=== PATIENT | female | born 1965 | race Caucasian/White ===

== ENCOUNTER 2022-03-11 02:31 | Outpatient (CLI) | payer BC, SELFPAY ==
[2022-03-11 12:08] LABS: Source Nasal/Nares
[2022-03-11 18:31] LABS: COVID-19 PCR Negative (Negative)
== END 2022-03-11 02:32 | disposition home or self-care (01) ==
LOC: LBO 02:31
PROVIDERS: PCP Internal Medicine; Visit Provider Podiatrist
DX: Z20.822 Contact with and (suspected) exposure to COVID-19 (principal); Z01.818 Encounter for other preprocedural examination
CPT/HCPCS: 87635

== ENCOUNTER 2022-03-13 06:17 | Day surgery (SDC) | payer BC, SELFPAY ==
--- NOTE | 2022-03-12 17:07 | HPE_ITS ---
Date of service: 03/13/22 History of Present Illness History of Present Illness Chief Complaint: painful left bunion deformity Narrative: 66 YO female with increasing complaints of pain associated with her left bunion deformity. Pain is interfering with shoe gear and daily activity and has not responded to palliative treatments. [facility] Medical History Cardiac pacemaker in situ Carpal tunnel syndrome Conduction disorder of the heart Complete Heart block with syncope per [facility] [place] Depressive disorder HLD (hyperlipidemia) HTN (hypertension) Kidney stone Migraine Obesity CHARY (obstructive sleep apnea) PAF (paroxysmal atrial fibrillation) SVT (supraventricular tachycardia) Vaginal hematoma Hx of. I&D of vaginal hematoma Surgical History History of ligation of vein Hx of appendectomy Hx of section Hx of cholecystectomy Hx of colonoscopy Hx of cystoscopy Hx of esophagogastroduodenoscopy Hx of lithotripsy Social History Smoking/Tobacco Use Status: Never Smoking risk assessment performed?: Yes Alcohol Intake: never Substance use type: does not use Do you feel safe at home: Yes Do you feel safe in your relationship?: Yes Meds Allergies and Home Medications Allergies Allergy/AdvReac Type Severity Reaction Status Date / Time No Known Allergies Allergy Unverified 03/10/22 08:34 Home Medications Medication Instructions Recorded Confirmed Type apixaban 5 mg tablet (Eliquis) 5 mg PO BID 03/10/22 03/10/22 History cholecalciferol (vitamin D3) 25 25 mcg PO DAILY 03/10/22 03/10/22 History mcg (1,000 unit) tablet (Vitamin D3) colchicine 0.6 mg tablet 0.6 mg PO BID 03/10/22 03/10/22 History desvenlafaxine succinate 50 mg 500 mg PO DAILY 03/10/22 03/10/22 History tablet,extended release 24 hr docosahexaenoic acid (dha)-epa 120 1 cap PO DAILY 03/10/22 03/10/22 History mg-180 mg capsule (Fish Oil) dofetilide 500 mcg capsule 500 mcg PO BID 03/10/22 03/10/22 History erenumab-aooe 140 mg/mL 140 mg SUBCUT DIRECTED 03/10/22 03/10/22 History subcutaneous auto-injector (Aimovig Autoinjector) gabapentin 300 mg capsule 300 mg PO TID 03/10/22 03/10/22 History hydroxychloroquine 200 mg tablet 400 mg PO DAILY 03/10/22 03/10/22 History lisinopril 5 mg tablet 5 mg PO DAILY 03/10/22 03/10/22 History metoprolol tartrate 50 mg tablet 50 mg PO BID 03/10/22 03/10/22 History omeprazole 20 mg capsule,delayed 20 mg PO DAILY 03/10/22 03/10/22 History release oxybutynin chloride 5 mg tablet 5 mg PO BID 03/10/22 03/10/22 History ubrogepant 100 mg tablet (Ubrelvy) 50 - 100 mg PO DIRECTED 03/10/22 03/10/22 History Exam Narrative Exam Narrative: Heads normocephalic eyes perlla hearing is adequate Uvula is midline Heart RRR, pacemaker noted Lung gibbs are clear Abdomen is soft, BS x 4 Peripheral pulses a 2/4, cft < 3 sec to all toes, no edema Muslce gps are 5/5 Skeletal exam is remarkable for a HAV deformity left foot with [place] articular tenderness noted medially over the 1st metatarsal head. ROM is good without crepitance Neurological exam grossly benign. Impressions: Symptomatic left HAV deformity Plan: Laly is being brought to the OR for surgical repair of her painful bunion deformity. She understans the risks and complications pertaining to pain, scarring, infection, over or under correction of the deformity, nerve injury and recurrence of deformity. All questions were answered in detail. Informed consent has been obtained.
[2022-03-13 06:25] VITALS: BP 123/85; PULSE 67; RESP 16; TEMP 36.7; O2SAT 99
[2022-03-13] MEDS: Lactated Ringers 1,000 ML 80 ML IV (07:05)
--- NOTE | 2022-03-13 07:08 | W.ANESPRE ---
General Info Date of Service Date Performed: 03/13/22 Height: 5 ft 3 in Weight: 101.9 kg Body Mass Index (BMI): 39.8 Surgical Procedure: Operation Date: 03/13/22 07:40 Proposed Procedure Side Surgeon beverly Cabrera Bunionectomy Left Gilson Hayden DPM Meds Allergies and Home Medications Allergies Allergy/AdvReac Type Severity Reaction Status Date / Time No Known Allergies Allergy Unverified 03/13/22 06:37 Home Medication Medication Instructions Recorded apixaban 5 mg tablet (Eliquis) 5 mg PO BID 03/10/22 cholecalciferol (vitamin D3) 25 25 mcg PO DAILY 03/10/22 mcg (1,000 unit) tablet (Vitamin D3) colchicine 0.6 mg tablet 0.6 mg PO BID 03/10/22 desvenlafaxine succinate 50 mg 500 mg PO DAILY 03/10/22 tablet,extended release 24 hr docosahexaenoic acid (dha)-epa 120 1 cap PO DAILY 03/10/22 mg-180 mg capsule (Fish Oil) dofetilide 500 mcg capsule 500 mcg PO BID 03/10/22 erenumab-aooe 140 mg/mL 140 mg SUBCUT DIRECTED 03/10/22 subcutaneous auto-injector (Aimovig Autoinjector) gabapentin 300 mg capsule 300 mg PO TID 03/10/22 hydroxychloroquine 200 mg tablet 400 mg PO DAILY 03/10/22 lisinopril 5 mg tablet 5 mg PO DAILY 03/10/22 metoprolol tartrate 50 mg tablet 50 mg PO BID 03/10/22 omeprazole 20 mg capsule,delayed 20 mg PO DAILY 03/10/22 release oxybutynin chloride 5 mg tablet 5 mg PO BID 03/10/22 ubrogepant 100 mg tablet (Ubrelvy) 50 - 100 mg PO DIRECTED 03/10/22 prednisone 10 mg tablet 10 mg PO DAILY 03/13/22 Current Visit Medications: Current Medications Generic Name Dose Route Start Last Admin Trade Name Freq PRN Reason Stop Dose Admin Sodium Chloride 500 mls @ 0 mls/hr 03/13/22 06:00 Saline 500ml Bag IV PRN PRN As Directed Cefazolin Sodium/Dextrose 2 gm in 50 mls @ 100 mls/hr 03/13/22 06:00 Ancef Duplex IVPB PREOP SPENCER Ringer's Solution 1,000 mls @ 80 mls/hr 03/13/22 06:00 03/13/22 07:05 IV 04/11/22 23:59 80 mls/hr INFUSION SPENCER Administration IV Miscellaneous Supplies 1 each 03/13/22 06:00 Iv Access IV DIRECTED SPENCER IV Miscellaneous Supplies 1 each 03/13/22 06:00 Iv Access IV 04/11/22 23:59 DIRECTED SPENCER Povidone Iodine 0 ml 03/13/22 06:00 Povidone-Iodine Soln. 118 Ml Btl TP DIRECTED SPENCER Sodium Chloride 0 ml 03/13/22 06:00 Normal Saline Flush 10 Ml Syr IVP PRN PRN Sodium Chloride 0 ml 03/13/22 06:00 Normal Saline Flush 10 Ml Syr IV 04/11/22 23:59 PRN PRN Sodium Chloride 0 ml 03/13/22 06:00 Normal Saline 10 Ml Vial IJ 04/11/22 23:59 DIRECTED PRN Sterile Water 0 ml 03/13/22 06:00 Water,Injection,Sterile 10 Ml Vial IJ 04/11/22 23:59 DIRECTED PRN PFSH Medical History Medical History Cardiac pacemaker in situ Carpal tunnel syndrome Conduction disorder of the heart Complete Heart block with syncope per [facility] [place] records Depressive disorder HLD (hyperlipidemia) HTN (hypertension) Kidney stone Migraine Obesity CHARY (obstructive sleep apnea) PAF (paroxysmal atrial fibrillation) SVT (supraventricular tachycardia) Vaginal hematoma Hx of. I&D of vaginal hematoma Surgical History Surgical History History of ligation of vein Hx of appendectomy Hx of section Hx of cholecystectomy Hx of colonoscopy Hx of cystoscopy Hx of esophagogastroduodenoscopy Hx of lithotripsy Tobacco Smoking/Tobacco Use Status: Never Alcohol Alcohol Intake: never Substance Use Substance use type: does not use Vital Signs and Lab Results Vital Signs Most Recent Vital Signs in EMR: Most Recent Vital Signs Temp Pulse Resp BP Pulse Ox 36.7 C 67 16 123/85 99 03/13/22 06:25 03/13/22 06:25 03/13/22 06:25 03/13/22 06:25 03/13/22 06:25 Lab Results Blood Type / Crossmatch: No Data to Display Complete Blood Count: No Data to Display Complete Metabolic Panel: No Data to Display Liver Function Panel: No Data to Display Coagulation Panel: No Data to Display Cardiac Panel: No Data to Display Arterial Blood Gas: No Data to Display Venous Blood Gas: No Data to Display Pancreas Panel: No Data to Display Thyroid Panel: No Data to Display Infectious Disease: Coronavirus (COVID-19)(PCR) Negative (Negative) 03/11/22 08:22 03/11/22 Coronavirus 2019 Source Nasal/Nares 03/11/22 08:22 03/11/22 Blood Cultures: No Data to Display Toxicology Panel: No Data to Display Anesthesia Assessment and Plan Anesthesia History Personal History: No History of Anesthesia Complications Family History: No Family History of Anesthesia Complications Exercise Tolerance Exercise Tolerance: Metabolic Equivalents>4 Pertinent Negatives Pertinent Negatives: No Symptoms of GERD (Well controlled with medication ), No Major Cardiovascular Symptoms or Complaints (Pacer ), No Major Pulmonary Symptoms or Complaints (CHARY does not wear CPAP ) and No History of CVA/TIA Cardiac & Pulmonary Exam Cardiac Exam: Normal S1/S2 Heart Sounds Pulmonary Exam: Clear Bilateral Breath Sounds Implantable Cardiac Device Does patient have a Pacemaker or an ICD?: Yes Device Filling Layer Up:: Upworthy [id number] advisa dr ortiz Reason for Placement:: CHB w/ syncope Date of Last Device Interrogation:: 03/04/22 Airway Exam Known Difficult Airway: No Mallampati Class: 1 Mouth Opening: Normal (> 3cm) Thyromental Distance: Greater than 3 cm Neck Range of Motion: Full ROM Neck Circumference: Normal Teeth Condition: Normal Dentition, Generalized Poor Dentition (Multiple missing, loose, rotting teeth) and Advised tooth loss possible given current condition (indicate tooth) ASA Classification ASA Score: ASA 2 Emergency Case?: No NPO Status NPO Status: NPO Clears >2 hours, Solids >8 hours Anesthesia Plan Resuscitation Status: Full Code Anesthesia Technique: General Anesthesia Airway Planned: Natural Airway Monitors Used: Standard Monitors
[2022-03-13 07:13] VITALS: BMI 39.8
[2022-03-13] MEDS: ceFAZolin 2 GM/50 ML BAG IVPB (07:33)
[2022-03-13] MEDS: Bupivacaine 0.5% Pres-Free 30 ML VIAL (08:11)
[2022-03-13] MEDS: Lidocaine 1% Multi-Dose 50 ML VIAL (08:11)
[2022-03-13] MEDS: Dexamethasone 4 MG/ML VIAL (08:22)
--- NOTE | 2022-03-13 08:33 | W.PM.DSUDISC ---
Discharge Plan Disposition Patient Disposition: HOME Condition: Good Discharge Details Reason For Visit: bunionectomy left foot Attending Provider: Gilson Hayden Primary Care Provider: Ron Neri Home Meds and New Rx's Prescriptions: New hydrocodone-acetaminophen 5-325 mg tablet 1 tab PO Q6H PRN (Reason: pain) Qty: 9 0RF Continued metoprolol tartrate 50 mg tablet 50 mg PO BID 0RF Label Comments: TAKE 1 TABLET BY MOUTH TWICE DAILY gabapentin 300 mg capsule 300 mg PO TID 0RF Label Comments: TAKE 1 CAPSULE BY MOUTH THREE TIMES DAILY omeprazole 20 mg Capsule,Delayed Release(Dr/Ec) 20 mg PO DAILY 0RF lisinopril 5 mg tablet 5 mg PO DAILY 0RF Label Comments: TAKE 1 TABLET BY MOUTH ONCE DAILY hydroxychloroquine 200 mg tablet 400 mg PO DAILY 0RF Label Comments: TAKE 2 TABLETS BY MOUTH ONCE DAILY colchicine 0.6 mg tablet 0.6 mg PO BID 0RF Label Comments: TAKE 1 TABLET BY MOUTH TWICE DAILY oxybutynin chloride 5 mg tablet 5 mg PO BID 0RF Label Comments: TAKE 1 TABLET BY MOUTH TWICE DAILY dofetilide 500 mcg capsule 500 mcg PO BID 0RF Label Comments: TAKE 1 CAPSULE BY MOUTH TWICE DAILY Fish Oil 120-180 mg Capsule 1 cap PO DAILY 0RF cholecalciferol (vitamin D3) [Vitamin D3] 25 mcg (1,000 unit) Tablet 25 mcg PO DAILY 0RF desvenlafaxine succinate 50 mg tablet extended release 24 hr 500 mg PO DAILY 0RF Label Comments: TAKE 1 TABLET BY MOUTH ONCE DAILY Eliquis 5 mg tablet 5 mg PO BID 0RF Label Comments: TAKE 1 TABLET BY MOUTH TWICE DAILY Aimovig Autoinjector 140 mg/mL auto-injector 140 mg SUBCUT DIRECTED 0RF Label Comments: INJECT 140 MG SUBCUTANEOUSLY EVERY 28 DAYS Ubrelvy 100 mg tablet 50 - 100 mg PO DIRECTED 0RF Label Comments: TAKE 1/2 TO 1 TABLET BY MOUTH NEEDED AT ONSET OF MIGRAINE, MAY REPEAT IN 2 HOURS prednisone 10 mg Tablet 10 mg PO DAILY 0RF Label Comments: Pt dose unknown but was on a drop and taper, she states she has 3 1/2 doses left.HE Discharge Instructions Activity:: Activity as Tolerated Remove Dressings/Wound Care:: Do Not Remove Shower/Bathe:: Cover Diet:: Normal Diet Discharge Orders Discharge Orders: Discharge Order (Routine); Ordered 03/13/22 Ordered By: Gilson Hayden
[2022-03-13 08:36] VITALS: BP 123/76; PULSE 66; RESP 18; TEMP 36.4; O2SAT 99
--- NOTE | 2022-03-13 08:37 | W.ANESPOSTOP ---
Postoperative Evaluation Date, Time and Location Date Performed: 03/13/22 Time Performed: 08:37 Patient Location: Day Surgery Unit Vital Signs Most Recent Imported Vital Signs: Most Recent Vital Signs Temp Pulse Resp BP Pulse Ox 36.7 C 67 16 123/85 99 03/13/22 06:25 03/13/22 06:25 03/13/22 06:25 03/13/22 06:25 03/13/22 06:25 Most Recent Manually Entered Vital Signs: Adult Blood Pressure: 123/76 Heart Rate: 67 Respirations: 12 Oxygen Saturation (%): 99 Temperature (C): 36.3 C Pain Score (0-10 Scale): 0 Pain Score Most Recent Pain Score: Most Recent Pain Score Pain Level 5 03/13/22 06:25 Assessment Mental Status: Awake (Alert & Oriented to Patient Baseline) Airway and Respiratory Function: Patent airway with normal (patient baseline) respiratory exam Cardiovascular Function: Hemodynamically Stable Hydration Status: Adequately Hydrated Nausea & Vomiting: No Nausea or Vomiting Pain: Pt. Denies Any Pain Peripheral Nerve Block: Patient did not receive a nerve block
[2022-03-13 08:38] VITALS: BP 123/76; PULSE 67; RESP 12; TEMPC 36.3; O2SAT 99
--- NOTE | 2022-03-13 08:38 | ROE_ITS ---
Date of service: 03/13/22 Time of Service: 08:38 Operative Note Operative Note DATE OF PROCEDURE: 03/13/22 PRE-OP DIAGNOSIS: HAV deformity left foot PROCEDURE: Modified Cabrera bunionectomy SURGEON: Gilson Hayden Refer to Anesthesia Record ESTIMATED BLOOD LOSS: 1 PATHOLOGY: none sent TOURNIQUET TIME: 36 COMPLICATIONS: None Patient was transported to: same day Patient's condition: stable Indications: 56-year-old female with progressive pain associated with a left bunion deformity now interfering with comfortable shoe gear and ambulation. Nonsurgical treatments have failed to provide sufficient relief of symptoms. She is being brought to the OR for a modified Cabrera type bunionectomy of the left foot. Risk and complications have been disclosed including the potential for pain, scarring, infection, over or under correction of the deformity, potential recurrent with ongoing discomfort with the potential for revisional procedures. No promises have been made to the final outcome of surgery. Informed consent been obtained. Procedure Description: Laly was brought to the operative suite placed in the supine position with the left foot was prepped and draped in the usual sterile podiatric fashion. Anesthesia was obtained through general with local blockade of the first ray left foot. Timeout was performed for safe surgery. The foot was exsanguinated well-padded ankle tourniquet inflated to 250 mmHg then free exsanguinated and raised to 280 mmHg. Attention was directed to the dorsal medial aspect of the first MPJ where a 4 cm incision was made medial parallel to the EHL tendon. The incision was deepened in controlled depth fashion hemostasis being acquired with electrocautery as needed dissection was carried down to the joint capsule. A midline incision was then made through the joint capsule and the capsule reflected medially and laterally. The head of the first metatarsal was then del ivered into the surgical wound. A large medial medial dorsal exostosis was appreciated the articular surface on both sides of the joint was thinned but no through and through erosions identified. With power instrumentation the medial and medial dorsal hyperostosis were resected all rough and bony edges were then rasped smooth and copious irrigation was performed lateral release was performed consisting of a lateral capsulotomy good correction was identified at this point. The wound was once again copiously irrigated and the joint capsule repaired with simple interrupted suture 3-0 Vicryl. Subcutaneous layer was then repaired with 4-0 Vicryl and a running subcuticular stitch of 4-0 Monocryl utilized to coapt the skin. 4 mg of dexamethasone phosphate was infused into the wound deeply Mastisol half-inch Steri-Strips Xeroform gauze fluff compression dressings were applied tourniquet was released at approximately 33 minutes with vascularity returning immediately to all toes since he left the OR with vital signs stable sharp and sponge counts correct she will be followed by myself in the office next week.
[2022-03-13 09:06] VITALS: BP 117/74; PULSE 60; RESP 16; TEMP 36.3; O2SAT 97
== END 2022-03-13 09:35 | disposition home or self-care (01) ==
PROVIDERS: PCP Internal Medicine; Visit Provider Podiatrist
PROC: (CPT 28292; principal; 2022-03-13 07:30)
DX: M21.612 Bunion of left foot (principal); Z95.0 Presence of cardiac pacemaker; I10 Essential (primary) hypertension; E78.5 Hyperlipidemia, unspecified; E66.9 Obesity, unspecified; Z68.39 Body mass index [BMI] 39.0-39.9, adult
CPT/HCPCS: 28292; J0690; J1100; J1885; J2001; J2250; J2405

== ENCOUNTER 2023-05-08 09:54 | Emergency (ER) | payer BC, SELFPAY ==
[2023-05-08 10:03] VITALS: BP 134/100; PULSE 84; RESP 16; TEMP 36.9; O2SAT 99
--- NOTE | 2023-05-08 10:23 | DI.CT_ITS ---
Exam(s) CT RENAL COLIC WO EXAM: CT RENAL COLIC WO CLINICAL HISTORY: Low back and right flank pain. TECHNIQUE: Imaging Protocol: Axial computed tomography images with coronal and sagittal reformatted images were created and reviewed CONTRAST MATERIAL: Intravenous: none Oral: None COMPARISON: No exams were available for comparison FINDINGS: VISUALIZED LUNG BASES: Mild increased markings noted in the lingular segment of the left lung, probab ly atelectasis. There are no pleural effusions.. Cardiac pacemaker wires noted.. ABDOMEN: There is no ascites. LIVER: There are no obvious focal hepatic lesions evident of this noninfused study. GALLBLADDER/BILIARY: Appears to be surgically absent. CBD is not dilated. PANCREAS: No evidence of pancreatic mass nor dilatation of the pancreatic duct. SPLEEN: Spleen is not enlarged. No obvious intrasplenic lesions. ADRENALS: There are no significant adrenal masses. KIDNEYS:There are multiple calculi in both kidneys. The largest is in the right kidney and measures approximately 7-8 mm.. No hydronephrosis. No solid renal masses nor cysts. Ureters are not dilated . No calculi seen in the nondistended urinary bladder. ABDOMINAL AORTA: Abdominal aorta is not enlarged. LYMPH NODES: There is no retroperitoneal nor paraaortic adenopathy. ABDOMINAL WALL: No evidence of significant anterior abdominal wall nor inguinal hernia. GI: There is no evidence of bowel obstruction, free air, nor abscess. Abundant fecal material noted throughout the colon. No significant diverticular disease. PELVIS: LYMPH NODES: There is no intrapelvic nor inguinal adenopathy. GI: No evidence of appendicitis.No evidence of sigmoid diverticulitis. URINARY BLADDER: No calculi nor obvious masses evident REPRODUCTIVE: Unremarkable OSSEOUS: No significant osseous lesions. No fractures. Chronic disc space narrowing L5-S1 level. IMPRESSION: 1. Bilateral nephrolithiasis. There are multiple calculi in both kidneys. The largest is in the rig ht kidney measures 7 mm. There are no calculi in the ureters nor in the urinary bladder. No hydrone phrosis. 2. Atelectasis noted in the lingular segment of the left lung. Cardiac pacemaker wires noted RADIATION DOSE DELIVERED: 1,287.27mGy.cm Total DLP DATA REPOSITORY: All CT scans at this facility are submitted to the National Radiology Data Registry (NRDR) Dose Index Registry (DIR) with the [employer] ([employer]). RADIATION OPTIMIZATION: All CT scans at this facility use at least one of these dose optimization te chniques: automated exposure control; mA and/or kV adjustment per patient size (includes targeted exa ms where dose is matched to clinical indication); or iterative reconstruction.
--- NOTE | 2023-05-08 10:25 | ED.GENADUL_ITS ---
Discharge Plan Disposition Patient Disposition: Home Discharge Details Clinical Impression: Low back pain Primary Care Provider: Ron Neri ED Provider: Edgardo Pisano Home Meds and New Rx's Prescriptions: Continued metoprolol tartrate 50 mg tablet 50 mg PO BID Patient Comments: TAKE 1 TABLET BY MOUTH TWICE DAILY gabapentin 300 mg capsule 300 mg PO TID Patient Comments: TAKE 1 CAPSULE BY MOUTH THREE TIMES DAILY omeprazole 20 mg Capsule,Delayed Release(Dr/Ec) 20 mg PO DAILY lisinopril 5 mg tablet 5 mg PO DAILY Patient Comments: TAKE 1 TABLET BY MOUTH ONCE DAILY hydroxychloroquine 200 mg tablet 400 mg PO DAILY Patient Comments: TAKE 2 TABLETS BY MOUTH ONCE DAILY colchicine 0.6 mg tablet 0.6 mg PO BID Patient Comments: TAKE 1 TABLET BY MOUTH TWICE DAILY oxybutynin chloride 5 mg tablet 5 mg PO BID Patient Comments: TAKE 1 TABLET BY MOUTH TWICE DAILY dofetilide 500 mcg capsule 500 mcg PO BID Patient Comments: TAKE 1 CAPSULE BY MOUTH TWICE DAILY Fish Oil 120-180 mg Capsule 1 cap PO DAILY cholecalciferol (vitamin D3) [Vitamin D3] 25 mcg (1,000 unit) Tablet 25 mcg PO DAILY desvenlafaxine succinate 50 mg tablet extended release 24 hr 50 mg PO DAILY Patient Comments: TAKE 1 TABLET BY MOUTH ONCE DAILY Eliquis 5 mg tablet 5 mg PO BID Patient Comments: TAKE 1 TABLET BY MOUTH TWICE DAILY Aimovig Autoinjector 140 mg/mL auto-injector 140 mg SUBCUT DIRECTED Patient Comments: INJECT 140 MG SUBCUTANEOUSLY EVERY 28 DAYS Ubrelvy 100 mg tablet 50 - 100 mg PO DIRECTED Patient Comments: TAKE 1/2 TO 1 TABLET BY MOUTH NEEDED AT ONSET OF MIGRAINE, MAY REPEAT IN 2 HOURS Discontinued prednisone 10 mg Tablet 10 mg PO DAILY Patient Comments: rx finished hydrocodone-acetaminophen 5-325 mg tablet 1 tab PO Q6H PRN (Reason: pain) Qty: 9 0RF Patient Comments: rx finished Discharge Instructions Instructions: Low Back Strain (ED) Additional Instructions: You may continue to perform light activities as tolerated. Please take medication as prescribed and use the limited narcotic for severe pain and discomfort. As discussed if you have any new or significant worsening of your symptoms feel free to return the emergency department for reassessment otherwise follow-up with your primary care provider within the next week for recheck of your back pain. Stand Alone Forms: Physical Therapy Referral, Work Release Referrals: Ron Neri [Primary Care Provider] - 1 week Discharge Data Discharge Date/Time-TO BE ENTERED AT DEPARTURE: 05/08/23 13:00 Medical Decision Making Patient presenting to the emergency department for chief complaint of low back pain. Patient reports this started about 3 weeks ago after use of a pallet [place] and moving a heavy pallet. She saw her primary care provider that placed her on prednisone and muscle relaxers which have not seemed to improve symptoms. Yesterday then patient started having right flank and kidney pain and states history of kidney stones. Patient states she cannot take NSAIDs due to being on blood thinners for her A-fib. Based on physical exam shows central tenderness to lumbar spine with no radiation of pain, no change in bowel or bladder function, no radiculopathy I feel the patient is LOW risk for ABDOMINAL AORTIC ANEURYSM, CAUDA EQUINA SYNDROME, EPIDURAL MASS LESION, SPINAL STENOSIS, OR HERNIATED DISK CAUSING SEVERE STENOSIS,. Patient does state recently though she was having some unusual bruising so with patient's history of renal stones increased bruising and some renal colic will perform CT imaging and check labs. Pending results will give IV acetaminophen Review of patient's labs show an overall nondiagnostic CBC with platelets within normal range, normal PT PTT and INR, CMP did show slight increase of carbon dioxide BUN and creatinine but nothing noted that was emergent. Urinalysis did show small amount of blood trace leukocytes and RBCs but negative for crystals bacteria no other signs of infection. Do not feel this is an infected urine so will not start any antibiotics until culture results have returned. CT imaging reviewed along with radiologist interpretation that shows nonobstructing renal calculi, no ureteral calculi some signs of constipation with no obstruction. We also discussed returning to the Emergency Department immediately if new or worsening symptoms occur. We have discussed the symptoms which are most concerning (e.g., saddle anesthesia, urinary or bowel incontinence or retention, changing or worsening pain) that necessitate immediate return. After discussion of diagnosis and plan of care patient has no further needs, questions, or concerns and states clear understanding to return to the emergency department for any worsening symptoms. This documentation was generated using [employer] system, please disregard any oddities of phrase or misspellings. Imaging Data Radiologic Study: Imaging: CT Scan Radiologist's impression: Exam(s) PROCEDURE INFORMATION: Exam: CT Abdomen And Pelvis Without Contrast Exam date and time: 05/08/2023 10:59 AM Age: 57 years old Clinical indication: Other: Lbp and RT flank pain TECHNIQUE: Imaging protocol: Computed tomography of the abdomen and pelvis without contrast. Radiation optimization: All CT scans at this facility use at least one of these dose optimization techniques: automated exposure control; mA and/or kV adjustment per patient size (includes targeted exams where dose is matched to clinical indication); or iterative reconstruction. COMPARISON: No relevant prior studies available. FINDINGS: Tubes, catheters and devices: Transvenous pacemaker leads in the heart Lungs: Bibasilar atelectasis Liver: Normal. No mass. Gallbladder and bile ducts: Cholecystectomy Pancreas: Normal. No ductal dilation. Spleen: Normal. No splenomegaly. Adrenal glands: Normal. No mass. Kidneys and ureters: Multiple nonobstructing renal calculi bilaterally. No ureteral calculus. Stomach and bowel: Findings consistent with constipation throughout the colon. Mildly prominent loops of jejunum taper more distally. No tara obstruction. This may represent ileus Appendix: No evidence of appendicitis. Intraperitoneal space: Unremarkable. No free air. No significant fluid collection. Vasculature: Unremarkable. No abdominal aortic aneurysm. Lymph nodes: Unremarkable. No enlarged lymph nodes. Urinary bladder: Unremarkable as visualized. Reproductive: Unremarkable as visualized. Bones/joints: Unremarkable. No acute fracture. Soft tissues: Unremarkable. IMPRESSION: 1. Multiple nonobstructing renal calculi bilaterally. . 2. No ureteral calculus. 3 Mildly prominent loops of jejunum taper more distally. No tara obstruction. This may represent ileus Lab Data Lab results reviewed: Yes I reviewed the patient's lab results. HPI General Mode of arrival: ambulatory . Date/Time Provider Initiated Documentation: 05/08/23 09:55 . Limitations to Documentation: no limitations . Information obtained by: patient and RN notes reviewed . History of Present Illness 57 year old F presents to the emergency department with the chief complaint of Low back, flank pain, described as moderate and severe, Quality is described as aching, and is localized to the back. Patient reports no radiation. Patient started experiencing this week(s) (3) and it has been constant. No relieving factors improve symptom(s), Movement worsens symptoms . Patient notes no other symptoms.. Patient did receive the following treatments prior to arrival, other (Prednisone and muscle relaxers) Related Data Home Medications Medication Instructions Recorded Confirmed apixaban 5 mg tablet (Eliquis) 5 mg PO BID 03/10/22 05/08/23 cholecalciferol (vitamin D3) 25 25 mcg PO DAILY 03/10/22 05/08/23 mcg (1,000 unit) tablet (Vitamin D3) colchicine 0.6 mg tablet 0.6 mg PO BID 03/10/22 05/08/23 desvenlafaxine succinate 50 mg 50 mg PO DAILY 03/10/22 05/08/23 tablet,extended release 24 hr docosahexaenoic acid (dha)-epa 120 1 cap PO DAILY 03/10/22 05/08/23 mg-180 mg capsule (Fish Oil) dofetilide 500 mcg capsule 500 mcg PO BID 03/10/22 05/08/23 erenumab-aooe 140 mg/mL 140 mg subcut DIRECTED 03/10/22 05/08/23 subcutaneous auto-injector (Aimovig Autoinjector) gabapentin 300 mg capsule 300 mg PO TID 03/10/22 05/08/23 hydroxychloroquine 200 mg tablet 400 mg PO DAILY 03/10/22 05/08/23 lisinopril 5 mg tablet 5 mg PO DAILY 03/10/22 05/08/23 metoprolol tartrate 50 mg tablet 50 mg PO BID 03/10/22 05/08/23 omeprazole 20 mg capsule,delayed 20 mg PO DAILY 03/10/22 05/08/23 release oxybutynin chloride 5 mg tablet 5 mg PO BID 03/10/22 05/08/23 ubrogepant 100 mg tablet (Ubrelvy) 50 - 100 mg PO DIRECTED 03/10/22 05/08/23 Allergies Allergy/AdvReac Type Severity Reaction Status Date / Time No Known Allergies Allergy Unverified 05/08/23 10:10 General Stated Complaint: Nk/Back Pain BIANCA: 3 Review of Systems Constitutional Constitutional: Denies chills and Denies fever(s) Cardiovascular Cardiovascular: Denies chest pain and Denies dyspnea on exertion Respiratory Respiratory: Denies cough and Denies dyspnea on exertion Gastrointestinal Gastrointestinal: Denies abdominal pain, Denies change in bowel habits, Denies diarrhea, Denies nausea and Denies vomiting Genitourinary Genitourinary: Reports flank pain and Denies urinary incontinence Musculoskeletal Musculoskeletal: Reports as per HPI and Reports back pain Neurologic Neurologic: Denies sensory deficit PFSH All Active Problems (Updated 05/08/23 @ 12:36 by Edgardo Pisano NP) Low back pain (Acute) Medical History Cardiac pacemaker in situ Carpal tunnel syndrome Conduction disorder of the heart Complete Heart block with syncope per [facility] [place] records Depressive disorder HLD (hyperlipidemia) HTN (hypertension) Kidney stone Migraine Obesity CHARY (obstructive sleep apnea) PAF (paroxysmal atrial fibrillation) SVT (supraventricular tachycardia) Vaginal hematoma Hx of. I&D of vaginal hematoma Surgical History History of ligation of vein Hx of appendectomy Hx of section Hx of cholecystectomy Hx of colonoscopy Hx of cystoscopy Hx of esophagogastroduodenoscopy Hx of lithotripsy Social History Smoking/Tobacco Use Status: Never Smoking risk assessment performed?: Yes Alcohol Intake: never Drug use: Daily Substance use type: marijuana Details: once a night to help with pain Do you feel safe at home: Yes Do you feel safe in your relationship?: Yes Exam Const General: cooperative and no acute distress Orientation: alert, awake and oriented x3 Neck Neck: normal visual inspection, full ROM and no meningeal signs Resp Effort & Inspection: normal respiratory effort Auscultation: clear to auscultation bilaterally Cardio Rate: regular rate Rhythm: regular rhythm Heart Sounds: S1 normal and S2 normal General: No CVA tenderness Back/Spine/Pelvis Cervical Spine: pain with cervical ROM Thoracic/Lumbar Spine: pain with thoraco-lumbar ROM, paraspinal tenderness, thoraco-lumbar ROM limited, No thoracic spinal tenderness and lumbar spinal tenderness Pelvis: buttock tenderness Neuro General: patient alert, patient awake and patient oriented x3 Course Vital Signs Vital signs: Vital Signs Temperature 36.9 C 05/08/23 10:03 Pulse 84 05/08/23 10:03 Respiratory Rate 16 05/08/23 10:03 Blood Pressure 134/100 H 05/08/23 10:03 Pulse Oximetry 99 05/08/23 10:03 Temperature 36.9 C 05/08/23 10:03 Temperature Source Skin 05/08/23 10:03 Pulse 84 05/08/23 10:03 Respiratory Rate 16 05/08/23 10:03 Blood Pressure 134/100 H 05/08/23 10:03 Blood Pressure Position Sitting 05/08/23 10:03 Pulse Oximetry 99 05/08/23 10:03 Oxygen Delivery Method Room Air 05/08/23 10:03 Oxygen Flow Rate 0 05/08/23 10:03 Pain Level 10 05/08/23 10:03
[2023-05-08 10:44] LABS: Abs Immature Grans 0.01 10^3/uL (0.0-0.06); Absolute Basophil Count 0.06 10^3/uL (0.0-0.2); Absolute Eosinophil Count 0.12 10^3/uL (0.0-0.7); Absolute Lymphocyte Count 1.29 10^3/uL (1.2-3.4); Absolute Monocyte Count 0.62 10^3/uL (0.1-0.8); Absolute Neutrophil Count 3.21 10^3/uL (1.2-6.7); Basophils % 1.1; Eosinophils % 2.3; HCT 46.5 % (36.0-46.0); HGB 14.5 g/dL (11.2-15.7); Immature Grans % 0.2; Lymphocytes % 24.3; MCH 30.7 pg (27.0-33.0); MCHC 31.2 % (32.0-36.0); MCV 98 fL (80-95); MPV 10.2 fL (8.0-11.0); Monocytes % 11.7; Neutrophils % 60.4; Platelet Count 242 10^3/uL (130-400); RBC 4.73 10^6/uL (3.93-5.22); RDW 13.2 % (11.7-14.6); RDW-SD 48.2 fL; WBC 5.31 10^3/uL (4.4-10.8)
[2023-05-08 10:45] LABS: Bilirubin Negative (Negative); Blood Small (Negative); Clarity Clear (Clear); Glucose Negative (Negative); Ketones Negative (Negative); Leukocyte Esterase Trace (Negative); Nitrite Negative (Negative); Urobilinogen 0.2 mg/dL (Up to 0.2)
[2023-05-08] MEDS: ACETAMINOPHEN 1,000 MG/100 ML BTL 400 MG IVPB (10:49)
[2023-05-08 10:52] LABS: Bacteria Negative HPF (Negative); C & S Indicated? Yes; Casts Negative LPF (Negative); Crystals Negative HPF (Negative); Epithelial Cells Rare HPF (Negative); Mucus Negative (Negative); WBC 0-2 HPF (0-5)
[2023-05-08 10:57] LABS: PTT Activated 27.3 sec (21.5-31.9)
[2023-05-08 10:59] LABS: ALT 28 U/L (14-59); AST 17 U/L (15-37); Albumin 4.2 g/dL (3.4-5.0); Alkaline Phosphatase 77 U/L (46-116); Anion Gap 5.2 mmol/L (3-11); BUN 24 mg/dL (7-18); Bilirubin, Total 0.4 mg/dL (0.2-1.0); CO2 32.8 mmol/L (21.0-32.0); CREATININE 1.1 mg/dL (0.55-1.02); Calcium 9.9 mg/dL (8.5-10.1); Chloride 105 mmol/L (98-107); Estimated GFR 58.24 (mL/min/1.73m2); Glucose 88 mg/dL (74-106); Potassium 4.6 mmol/L (3.5-5.1); Sodium 143 mmol/L (136-145); Total Protein 7.7 g/dL (6.4-8.2)
[2023-05-08] MEDS: HYDROmorphone 2 MG/ML SYR 1 MG IVP (11:34)
[2023-05-08] MEDS: Normal Saline 250 ML 500 ML IV (11:40)
[2023-05-08 11:45] VITALS: O2SAT 85; O2SAT 96
[2023-05-08 11:57] VITALS: RESP 12; O2SAT 96
[2023-05-08 12:04] VITALS: O2SAT 97
--- NOTE | 2023-05-08 12:08 | DI.VRAD_ITS ---
PROCEDURE INFORMATION: Exam: CT Abdomen And Pelvis Without Contrast Exam date and time: 05/08/2023 10:59 AM Age: 57 years old Clinical indication: Other: Lbp and RT flank pain TECHNIQUE: Imaging protocol: Computed tomography of the abdomen and pelvis without contrast. Radiation optimization: All CT scans at this facility use at least one of these dose optimization techniques: automated exposure control; mA and/or kV adjustment per patient size (includes targeted exams where dose is matched to clinical indication); or iterative reconstruction. COMPARISON: No relevant prior studies available. FINDINGS: Tubes, catheters and devices: Transvenous pacemaker leads in the heart Lungs: Bibasilar atelectasis Liver: Normal. No mass. Gallbladder and bile ducts: Cholecystectomy Pancreas: Normal. No ductal dilation. Spleen: Normal. No splenomegaly. Adrenal glands: Normal. No mass. Kidneys and ureters: Multiple nonobstructing renal calculi bilaterally. No ureteral calculus. Stomach and bowel: Findings consistent with constipation throughout the colon. Mildly prominent loops of jejunum taper more distally. No tara obstruction. This may represent ileus Appendix: No evidence of appendicitis. Intraperitoneal space: Unremarkable. No free air. No significant fluid collection. Vasculature: Unremarkable. No abdominal aortic aneurysm. Lymph nodes: Unremarkable. No enlarged lymph nodes. Urinary bladder: Unremarkable as visualized. Reproductive: Unremarkable as visualized. Bones/joints: Unremarkable. No acute fracture. Soft tissues: Unremarkable. IMPRESSION: 1. Multiple nonobstructing renal calculi bilaterally. . 2. No ureteral calculus. 3 Mildly prominent loops of jejunum taper more distally. No tara obstruction. This may represent ileus Dictated and Authenticated by: Mary Osborne MD. Ordering:NARINDER Reynoso MD
[2023-05-08 12:46] VITALS: BP 139/104; PULSE 83; RESP 16; O2SAT 96
== END 2023-05-08 13:00 | disposition home or self-care (01) ==
PROVIDERS: Emergency Provider Nurse Practitioner Family; PCP Internal Medicine
DX: M54.59 Other low back pain (principal)
CPT/HCPCS: 36415; 80053; 96365; 96375; 99284; 74176; 81003; 81015; 85025; 85610; 85730; 87086; J0131; J1170